=== PATIENT | female | born 1955 | race Caucasian/White ===

== ENCOUNTER 2016-07-28 19:54 | Emergency (ER) | payer MEDICAID ==
[~2016-07-28] VITALS: Ht 162.6 cm; Wt 59.2 kg
[2016-07-28 20:28] LABS: BLOOD UREA NITROGEN 24 mg/dL (7-18)
[2016-07-28 20:51] LABS: PATH.CAST-FLAG NOT PRESENT; SPERM-FLAG NOT PRESENT; SRC-FLAG NOT PRESENT; XTAL-FLAG NOT PRESENT; YLC-FLAG NOT PRESENT
[2016-07-28 22:39] VITALS: BP 146/81
== END 2016-07-28 22:41 | disposition home or self-care (01) ==
LOC: ED 21:49
DX: N81.4 Uterovaginal prolapse, unspecified (principal)
CPT/HCPCS: 36415; 80048; 81001; 82040; 85025; 99284